=== PATIENT | male | born 1995 | race African-American/Black ===

== ENCOUNTER 2019-06-02 17:39 | Emergency (ER) | payer MEDICAID ==
[~2019-06-02] VITALS: Ht 185.4 cm; Wt 81.4 kg
[2019-06-02 18:31] LABS: BASOPHILS # (AUTO) 0.1 X10'3 (0-0.2); BASOPHILS % (AUTO) 0.4 % (0-1); EOSINOPHILS # (AUTO) 0.5 X10'3 (0-0.9); EOSINOPHILS % (AUTO) 3.7 % (0-6); HEMATOCRIT 44.3 % (42.0-52.0); HEMOGLOBIN 14.6 g/dl (14.0-17.9); LYMPHOCYTES # (AUTO) 1.3 X10'3 (1.1-4.8); LYMPHOCYTES % (AUTO) 9.7 % (21-51); MEAN CORPUSCULAR VOLUME 81.7 FL (78-98); MEAN PLATELET VOLUME 8.7 FL (7.4-10.4); MONOCYTES # (AUTO) 0.8 X10'3 (0-0.9); MONOCYTES % (AUTO) 5.9 % (2-12); NEUTROPHILS # (AUTO) 10.8 X10'3 (1.8-7.7); NEUTROPHILS % (AUTO) 80.3 % (42-75); PLATELET COUNT 276 X10'3 (140-440); RED BLOOD COUNT 5.42 X10'6 (4.70-6.10); WHITE BLOOD COUNT 13.4 X10'3 (4.5-11.0)
[2019-06-02 18:39] LABS: PARTIAL THROMBOPLASTIN TIME 26 SECONDS (22-32)
[2019-06-02 18:50] LABS: ALANINE AMINOTRANSFERASE 24 U/L (12-78); ALBUMIN 3.7 G/DL (3.4-5.0); ALBUMIN/GLOBULIN RATIO 0.9 (1.1-1.5); ALKALINE PHOSPHATASE 100 IU/L (46-116); ANION GAP 11 (8-16); ASPARTATE AMINO TRANSFERASE 18 U/L (10-37); BILIRUBIN,TOTAL 0.5 MG/DL (0.1-1.0); BLOOD UREA NITROGEN 14 MG/DL (7-18); BUN/CREATININE RATIO 11.5 (5.4-32.0); CALCIUM 8.7 MG/DL (8.5-10.1); CHLORIDE 103 MMOL/L (99-107); CREATININE 1.22 MG/DL (0.60-1.10); GLUCOSE 103 MG/DL (70-104); POTASSIUM 3.5 MMOL/L (3.5-5.1); SODIUM 140 MMOL/L (135-145); TOTAL CARBON DIOXIDE 26.2 MMOL/L (24-32); TOTAL PROTEIN 7.7 G/DL (6.4-8.2); eGFR 75 ML/MIN
[2019-06-02] MEDS ORDERED: ketorolac tromethamine 15mg/ml inj. IV ONE (19:10)
[2019-06-02] MEDS ORDERED: GUAI237S46 PO (19:37)
[2019-06-02 20:09] VITALS: BP 118/59
== END 2019-06-02 20:10 | disposition home or self-care (01) ==
LOC: ER 17:40
DX: B33.8 Other specified viral diseases (principal); R05 Cough; R50.9 Fever, unspecified; R06.02 Shortness of breath; R07.81 Pleurodynia; J45.909 Unspecified asthma, uncomplicated; F12.90 Cannabis use, unspecified, uncomplicated; Z79.899 Other long term (current) drug therapy
CPT/HCPCS: 36415; 71045; 80053; 83605; 84145; 85025; 85610; 85730; 87040; 87502; 87503; 96374; 99284; J1885

== ENCOUNTER 2019-06-21 22:35 | Emergency (ER) | payer MEDICAID ==
[~2019-06-21] VITALS: Ht 182.9 cm; Wt 79.2 kg
[2019-06-21] MEDS ORDERED: predniSONE 20 mg tablet PO ONE (23:00)
[2019-06-21] MEDS ORDERED: ipratropium/albuterol 3ml nebule NEB ONE (23:00)
--- NOTE | 2019-06-21 23:00 | NUR ---
MARICARMEN LYNCH UPDATED OF PT AND NOW AT BEDSIDE. VERBAL RECEIVED FOR SHELBY X1.
[2019-06-21] MEDS ORDERED: PRED20TA PO (23:26)
[2019-06-21] MEDS ORDERED: ALBU6.7H9 INH (23:26)
[2019-06-21] MEDS ORDERED: albuterol 2.5 MG/3 ML nebule NEB ONE (23:30)
[2019-06-21] MEDS ORDERED: albuterol 2.5 MG/3 ML nebule ONE (23:35)
[2019-06-22 00:21] VITALS: BP 128/75
== END 2019-06-22 00:23 | disposition home or self-care (01) ==
LOC: ER 22:35
DX: J45.901 Unspecified asthma with (acute) exacerbation (principal); F12.90 Cannabis use, unspecified, uncomplicated; Z79.899 Other long term (current) drug therapy
CPT/HCPCS: 71045; 93005; 94640; 94760; 99284; J7512

== ENCOUNTER 2019-07-07 21:32 | Emergency (ER) | payer MEDICAID ==
[~2019-07-07] VITALS: Ht 187.3 cm; Wt 84.5 kg
[~2019-07-07 21:32] MED LIST: ALBU6.7H9 INH
[2019-07-07] MEDS ORDERED: ipratropium/albuterol 3ml nebule NEB ONE (22:20)
[2019-07-07] MEDS ORDERED: PRED20TA PO ×2 (22:32→23:13)
[2019-07-07] MEDS ORDERED: BECL7.3A INH (22:34)
[2019-07-07] MEDS ORDERED: ALBU8HFA PO (22:34)
[2019-07-07 23:23] VITALS: BP 135/76
== END 2019-07-07 23:20 | disposition home or self-care (01) ==
LOC: ER 21:35
DX: J45.901 Unspecified asthma with (acute) exacerbation (principal); F12.90 Cannabis use, unspecified, uncomplicated; Z79.899 Other long term (current) drug therapy
CPT/HCPCS: 93005; 94010; 94640; 94760; 99283

== ENCOUNTER 2020-01-02 13:49 | Emergency (ER) | payer MEDICAID, OTHER ==
[~2020-01-02] VITALS: Ht 185.4 cm; Wt 87.0 kg
[~2020-01-02 13:49] MED LIST changes: +BECL7.3A INH; +PRED20TA PO
[2020-01-02 13:54] VITALS: BP 142/83
[2020-01-02] MEDS ORDERED: ondansetron 4mg rapidly disintigrating tab PO ONE (14:20)
[2020-01-02] MEDS ORDERED: HYDROcodone/acetaminophen 5mg/325mg tablet PO ONE (14:20)
[2020-01-02] MEDS ORDERED: IBUP-1984 PO (14:22)
[2020-01-02] MEDS ORDERED: CLIN300C70 PO (14:22)
== END 2020-01-02 14:56 | disposition home or self-care (01) ==
LOC: ER 13:49
DX: K04.7 Periapical abscess without sinus (principal); J45.909 Unspecified asthma, uncomplicated; F12.90 Cannabis use, unspecified, uncomplicated; Z79.899 Other long term (current) drug therapy
CPT/HCPCS: 99283

== ENCOUNTER 2020-01-16 20:17 | Emergency (ER) | payer MEDICAID, OTHER ==
[~2020-01-16] VITALS: Ht 188 cm; Wt 90.0 kg
[2020-01-16] MEDS ORDERED: naloxone 2mg/2ml inj IV STA (20:23)
[2020-01-16 21:03] LABS: BASOPHILS # (AUTO) 0.2 X10'3 (0-0.2); BASOPHILS % (AUTO) 1.7 % (0-1); EOSINOPHILS # (AUTO) 0.9 X10'3 (0-0.9); EOSINOPHILS % (AUTO) 7.7 % (0-6); HEMATOCRIT 48.6 % (42.0-52.0); HEMOGLOBIN 15.8 g/dl (14.0-17.9); MEAN CORPUSCULAR HEMOGLOBIN 27.1 PG (27.0-31.0); MEAN CORPUSCULAR HGB CONC 32.6 g/dL (33.0-36.5); MEAN CORPUSCULAR VOLUME 83.3 FL (78-98); MEAN PLATELET VOLUME 8.7 FL (7.4-10.4); MONOCYTES % (AUTO) 9.1 % (2-12); NEUTROPHILS % (AUTO) 45.5 % (42-75); PLATELET COUNT 398 X10'3 (140-440); RED BLOOD COUNT 5.83 X10'6 (4.70-6.10); RED CELL DISTRIBUTION WIDTH 14.6 % (11.5-14.5); WHITE BLOOD COUNT 11.1 X10'3 (4.5-11.0)
[2020-01-16 21:16] LABS: ALANINE AMINOTRANSFERASE 20 U/L (12-78); ALBUMIN 3.9 G/DL (3.4-5.0); ALKALINE PHOSPHATASE 115 IU/L (46-116); ANION GAP 12 (8-16); ASPARTATE AMINO TRANSFERASE 22 U/L (10-37); BILIRUBIN,TOTAL 0.4 MG/DL (0.1-1.0); BLOOD UREA NITROGEN 10 MG/DL (7-18); BUN/CREATININE RATIO 8.1 (5.4-32.0); CALCIUM 9.3 MG/DL (8.5-10.1); CHLORIDE 104 MMOL/L (99-107); CREATININE 1.23 MG/DL (0.60-1.10); ETHANOL 0.083 GM/DL (0.0-0.010); GLUCOSE 86 MG/DL (70-104); POTASSIUM 4.1 MMOL/L (3.5-5.1); SODIUM 143 MMOL/L (135-145); TOTAL CARBON DIOXIDE 27.1 MMOL/L (24-32); eGFR 89 ML/MIN
[2020-01-16 21:18] LABS: URINE AMPHETAMINE SCREEN NEGATIVE (Neg); URINE BARBITUATE SCREEN NEGATIVE (Neg); URINE BENZODIAZEPINES SCREEN POSITIVE (Neg); URINE CANNABINOID SCREEN POSITIVE (Neg); URINE COCAINE SCREEN POSITIVE (Neg); URINE METHADONE SCREEN NEGATIVE (Neg); URINE OPIATE SCREEN NEGATIVE (Neg); URINE PHENCYCLIDINE SCREEN NEGATIVE (Neg)
[2020-01-16 21:19] LABS: ACETAMINOPHEN < 2.0 UG/ML (10-30)
[2020-01-16 21:38] VITALS: BP 138/85
== END 2020-01-16 21:40 | disposition left against medical advice (07) ==
LOC: ER 20:18
DX: T50.901A Poisoning by unspecified drugs, medicaments and biological substances, accidental (unintentional), initial encounter (principal); J45.909 Unspecified asthma, uncomplicated; F12.90 Cannabis use, unspecified, uncomplicated; Z79.899 Other long term (current) drug therapy
CPT/HCPCS: 36415; 80053; 80305; 80320; 80329; 85025; 93005; 99284; J2310

== ENCOUNTER 2020-04-23 02:49 | Emergency (ER) | payer MEDICAID, OTHER ==
[~2020-04-23] VITALS: Ht 193 cm; Wt 87.6 kg
[2020-04-23 02:50] VITALS: BP 129/73
== END 2020-04-23 03:12 ==
LOC: ER 02:50
DX: Z04.1 Encounter for examination and observation following transport accident (principal); J45.909 Unspecified asthma, uncomplicated; F12.90 Cannabis use, unspecified, uncomplicated; Z79.899 Other long term (current) drug therapy; V98.8XXA Other specified transport accidents, initial encounter; Y93.89 Activity, other specified; Y92.488 Other paved roadways as the place of occurrence of the external cause; Y99.8 Other external cause status
CPT/HCPCS: 99284

== ENCOUNTER 2021-04-29 02:01 | Emergency (ER) | payer OTHER ==
[~2021-04-29] VITALS: Ht 188 cm; Wt 90.0 kg
[2021-04-29 02:43] VITALS: BP 133/79
== END 2021-04-29 04:55 ==
LOC: ER 02:02
DX: F10.129 Alcohol abuse with intoxication, unspecified (principal); J45.909 Unspecified asthma, uncomplicated; F12.90 Cannabis use, unspecified, uncomplicated; Z79.899 Other long term (current) drug therapy; V89.2XXA Person injured in unspecified motor-vehicle accident, traffic, initial encounter; Y93.89 Activity, other specified; Y92.89 Other specified places as the place of occurrence of the external cause; Y99.8 Other external cause status; Y90.9 Presence of alcohol in blood, level not specified
CPT/HCPCS: 99283